=== PATIENT | female | born 1965 | race African-American/Black ===

== ENCOUNTER 2019-05-26 10:49 | Emergency (ER) | payer OTHER ==
[~2019-05-26] VITALS: Ht 162.6 cm; Wt 59.0 kg
[~2019-05-26 10:49] MED LIST: BISA-81 PO; DOCU-138 PO; GLYB5TAB4 PO; NAPR220C15 PO; POLY17PO3 PO
[2019-05-26] MEDS ORDERED: SODIUM CHLORIDE 0.9% 1,000 ML IV ONE ×2 (11:02→12:30)
[2019-05-26] MEDS ORDERED: NITROGLYCERIN 0.4MG TABLET SL SL PRN (11:15)
[2019-05-26] MEDS ORDERED: ASPIRIN 81MG TABLET PO ONE (11:15)
[2019-05-26 11:59] LABS: BASOPHILS % 1.1 % (0.0-2.0); EOSINOPHILS % 1.9 % (0.0-5.0); HEMATOCRIT. 37.5 % (36.0-48.0); HEMOGLOBIN. 12.6 g/dL (12.0-16.0); LYMPHOCYTES % 24.1 % (20.0-50.0); MEAN CORPUSCULAR VOLUME 100.8 fL (81.0-99.0); MEAN PLATELET VOLUME 9.8 fl (7.4-10.4); MONOCYTES % 5.9 % (2.0-8.0); PLATELET 190 x1000/uL (130-400); RED BLOOD CELL COUNT 3.72 mill/uL (4.2-5.4); RED CELL DISTRIBUTION WIDTH 12.9 % (11.6-14.6)
[2019-05-26 12:05] LABS: CHLORIDE 104 mEq/L (98-107)
[2019-05-26] MEDS ORDERED: KETOROLAC 15MG/ML VIAL IV ONE (12:15)
[2019-05-26] MEDS ORDERED: INSULIN REGULAR (HUMULIN R) 300UNITS/3ML SUBCUT ONE (13:00)
[2019-05-26] MEDS ORDERED: IOHEXOL-350 100 ML BOTTLE ONE (14:44)
[2019-05-26 17:00] VITALS: BP 148/96
== END 2019-05-26 17:00 | disposition short-term general hospital (02) ==
LOC: ER 10:49
DX: I20.0 Unstable angina (principal); R07.89 Other chest pain; E11.65 Type 2 diabetes mellitus with hyperglycemia; F17.200 Nicotine dependence, unspecified, uncomplicated
CPT/HCPCS: 36415; 71045; 71275; 80053; 82962; 83880; 84484; 85025; 85379; 87040; 93005; 96361; 96372; 96374; 99285; J1815; J1885; J7030; Q9967

== ENCOUNTER 2020-04-18 07:33 | Emergency (ER) | payer OTHER ==
[~2020-04-18] VITALS: Ht 167.6 cm; Wt 59.0 kg
[2020-04-18] MEDS ORDERED: MORPHINE SULFATE 4 MG/ML CPJ (NOT FOR IM USE) IV STA (08:00)
[2020-04-18] MEDS ORDERED: ONDANSETRON HCL 4MG/2ML INJ IV STA (08:00)
[2020-04-18 09:47] LABS: CHLORIDE 101 mEq/L (98-107); HEMATOCRIT. 24.9 % (36.0-48.0); HEMOGLOBIN. 8.9 g/dL (12.0-16.0); MEAN CORPUSCULAR HEMOGLOBIN 37.1 pg (28.0-32.0); MEAN CORPUSCULAR VOLUME 103.9 fL (81.0-99.0); MEAN PLATELET VOLUME 7.7 fl (7.4-10.4); RED CELL DISTRIBUTION WIDTH 18.5 % (11.6-14.6)
[2020-04-18 09:53] LABS: PROTHROMBIN TIME 10.9 sec (9.6-11.0)
[2020-04-18] MEDS ORDERED: MORPHINE SULFATE 4 MG/ML CPJ (NOT FOR IM USE) IV ONE (10:15)
[2020-04-18 10:56] LABS: PLATELET 41 x1000/uL (130-400); PLATELET ESTIMATE MARKEDLY DECREASED
[2020-04-18 11:31] VITALS: BP 156/88
== END 2020-04-18 11:46 | disposition short-term general hospital (02) ==
LOC: ER 08:01 → EDBEDREQTM 10:27 → EDBEDREQ 10:27 → EDBEDREQSVC 10:27 → ER 11:46 → CANBEDREQ 12:11
DX: M51.26 Other intervertebral disc displacement, lumbar region (principal); S83.92XA Sprain of unspecified site of left knee, initial encounter; M25.551 Pain in right hip; D69.6 Thrombocytopenia, unspecified; D64.9 Anemia, unspecified; W06.XXXA Fall from bed, initial encounter; Y93.89 Activity, other specified; Y92.013 Bedroom of single-family (private) house as the place of occurrence of the external cause
CPT/HCPCS: 36415; 71045; 72131; 72192; 73502; 73562; 80053; 85025; 85610; 86850; 86900; 86901; 93005; 96374; 96375; 96376; 99285; J2270; J2405